=== PATIENT | female | born 1950 | race American Indian/Alaskan Native ===

== ENCOUNTER 2022-04-30 11:47 | Outpatient (CLI) | payer BC, MEDICARE | END 2022-04-30 11:48 | disposition home or self-care (01) | LOC: CSHLAB 11:47 | PROVIDERS: ATTEND Internal Medicine Gastroenterology | DX: Z20.822 Contact with and (suspected) exposure to COVID-19 (principal); Z12.11 Encounter for screening for malignant neoplasm of colon | CPT/HCPCS: 87811 ==

== ENCOUNTER 2022-05-03 05:55 | Day surgery (SDC) | payer BC, MEDICARE ==
[2022-05-01 13:28] VITALS: BMI 30.1
[2022-05-03] MEDS ORDERED: PROPOFOL 40 ML ONE (08:12)
[2022-05-03] MEDS ORDERED: Lidocaine 1% PF 5 ML VIAL ONE (08:32)
[2022-05-03] MEDS ORDERED: Fentanyl 100 MCG/2 ML VIAL ONE (08:34)
[2022-05-03] MEDS ORDERED: PROPOFOL 20 ML ONE (08:43)
== END 2022-05-03 09:40 | disposition home or self-care (01) ==
LOC: CSHSDC 05:55
PROVIDERS: ATTEND Internal Medicine Gastroenterology
PROC: 0DJD8ZZ Inspection of Lower Intestinal Tract, Via Natural or Artificial Opening Endoscopic (ICD-10-PCS; principal; 2022-05-03)
DX: Z12.11 Encounter for screening for malignant neoplasm of colon (principal); K57.30 Diverticulosis of large intestine without perforation or abscess without bleeding; K64.9 Unspecified hemorrhoids; I10 Essential (primary) hypertension; E78.5 Hyperlipidemia, unspecified; Z20.822 Contact with and (suspected) exposure to COVID-19; Z88.5 Allergy status to narcotic agent; Z79.899 Other long term (current) drug therapy
CPT/HCPCS: J2704; J3010